=== PATIENT | female | born 1965 | race Caucasian/White ===

== ENCOUNTER 2020-05-03 07:32 | Inpatient (IN) ==
[2020-05-03] MEDS ORDERED: 0.9 % Sodium Chloride 1,000 ML IVC ONE (07:39)
[2020-05-03] MEDS ORDERED: Morphine Sulfate 2 MG/ML SYRINGE IVP ONE (07:39)
[2020-05-03] MEDS ORDERED: Ondansetron 4 MG/2 ML VIAL IVP ONE (07:39)
[2020-05-03 08:26] LABS: Basophils % 0.2 %; Hematocrit 39.7 % (35.3-44.9); Hemoglobin 13.3 g/dL (11.5-15.4); Immature Granulocytes % 0.4 % (0-4); Lymphocytes # 1.3 K/mcL (0.6-4.6); Mean Corpuscular HGB Conc 33.5 g/dL (31.6-35.5); Mean Corpuscular Hemoglobin 29.3 pg (28.0-33.3); Mean Corpuscular Volume 87.4 fL (83.0-100.0); Mean Platelet Volume 9.9 fL (9.4-12.4); Monocytes # 0.6 K/mcL (0.0-1.3); Monocytes % 6.2 %; Platelet Count 344 K/mcL (140-400); Red Blood Count 4.54 M/mcL (3.82-4.97); Red Cell Distribution Width 12.6 % (11.5-14.5); Segmented Neutrophils % 80.2 %
[2020-05-03 09:10] LABS: Alanine Aminotransferase 332 Units/L (7-52); Albumin 3.9 g/dL (3.5-5.7); Albumin/Globulin Ratio 1.3 (1.1-2.2); Alkaline Phosphatase 189 Units/L (34-104); Aspartate Amino Transferase 511 Units/L (13-39); BUN/Creatinine Ratio 14 (6-26); Bilirubin,Direct 1.2 mg/dL (0.0-0.2); Bilirubin,Indirect 0.6 mg/dL (0.0-1.0); Bilirubin,Total 1.8 mg/dL (0.3-1.0); Blood Urea Nitrogen 8 mg/dL (6-20); Calcium 8.5 mg/dL (8.6-10.3); Carbon Dioxide 14 mEq/L (23-29); Chloride 99 mEq/L (98-107); Glucose 204 mg/dL (70-105); Lipase 16 Units/L (11-82); Osmolality,Calculated 272 (280-300); Potassium 4.1 mEq/L (3.5-5.1); Sodium 129 mEq/L (136-145); Total Protein 6.9 g/dL (6.4-8.9); Troponin I < 0.03 ng/mL (< 0.04); eGFR For African Americans > 60 (> 60); eGFR For Non-African Americans > 60 (> 60)
[2020-05-03 09:45] LABS: Bacteria,Urine Few per hpf (None-Few); Bilirubin,Urine Negative (Negative); Blood,Urine Negative (Negative); Clarity,Urine Turbid (Clear); Color,Urine Yellow (Yellow); Glucose,Urine (UA) 70 mg/dL (Normal); Ketones,Urine 20 mg/dL (Negative); Leukocyte Esterase,Urine Negative (Negative); Mucus,Urine Few per lpf (None-Few); Nitrite,Urine Negative (Negative); PH,Urine 6.5 pH Units (5.0-8.0); Protein,Urine Negative (Neg-Trace); Specific Gravity,Urine 1.012 (1.010-1.025); Squamous Epithelial Cell,Urine Few per hpf (None-Few)
[2020-05-03] MEDS ORDERED: Ampicillin/Sulbactam 1,500 MG in 0.9 % Sodium Chloride Mini Bag 100 ML IVPB ONE (10:10)
[2020-05-03] MEDS ORDERED: Ondansetron 4 MG/2 ML VIAL IVP PRN ×2 (10:26→12:02)
[2020-05-03] MEDS ORDERED: Naloxone 0.4 MG/ML INJ IVP PRN (10:26)
[2020-05-03 10:52] LABS: Adenovirus Not Detected (Not Detect); Bordetella Pertussis Not Detected (Not Detect); Chlamydophila pneumoniae Not Detected (Not Detect); Coronavirus 229E Not Detected (Not Detect); Coronavirus HKU1 Not Detected (Not Detect); Coronavirus NL63 Not Detected (Not Detect); Coronavirus OC43 Not Detected (Not Detect); Human Metapneumovirus Not Detected (Not Detect); Human Rhinovirus/Enterovirus Not Detected (Not Detect); Influenza A Subtype 2009 H1 Not Detected (Not Detect); Influenza B Not Detected (Not Detect); Mycoplasma pneumoniae Not Detected (Not Detect); Parainfluenza Virus 1 Not Detected (Not Detect); Parainfluenza Virus 2 Not Detected (Not Detect); Parainfluenza Virus 3 Not Detected (Not Detect); Parainfluenza Virus 4 Not Detected (Not Detect); Respiratory Syncytial Virus Not Detected (Not Detect); SARS-CoV-2 Not Detected (Not Detect)
[2020-05-03] MEDS: 0.9 % Sodium Chloride 1,000 ML IVC SCH ×2 (11:17→16:39)
[2020-05-03] MEDS ORDERED: *HR* FentaNYL (PF) 100 MCG/2 ML VIAL ONE (11:48)
[2020-05-03] MEDS ORDERED: *HR* Propofol 200 MG/20 ML VIAL IVP ONE (11:48)
[2020-05-03] MEDS ORDERED: *HR* Midazolam HCl 2 MG/2 ML VIAL ONE (11:48)
[2020-05-03] MEDS ORDERED: Lidocaine -MPF 2% 2 ML VIAL ONE (11:52)
[2020-05-03] MEDS ORDERED: *HR* Succinylcholine 200 MG/10 ML VIAL IVP ONE (11:52)
[2020-05-03] MEDS ORDERED: Lidocaine -MPF 4% 5 ML AMPUL ONE (11:52)
[2020-05-03] MEDS ORDERED: Ondansetron 4 MG/2 ML VIAL ONE (11:52)
[2020-05-03] MEDS ORDERED: Promethazine Syrup 6.25 MG/5 ML PO PRN (12:02)
[2020-05-03] MEDS ORDERED: Dexamethasone 4 MG/ML VIAL ONE (12:40)
[2020-05-03] MEDS ORDERED: Indomethacin 50 MG SUPP.RECT RC ONE (12:41)
[2020-05-03 15:08] LABS: INR 1.1; Prothrombin Time 12.6 Seconds (9.4-12.1)
[2020-05-03] MEDS: Ampicillin/Sulbactam 1,500 MG in 0.9 % Sodium Chloride Mini Bag 100 ML IVPB SCH ×2 (15:19→21:12)
[2020-05-03] MEDS: *HR* Heparin 5,000 UNIT/ML VIAL SQ SCH (18:03)
[2020-05-04] MEDS: Ampicillin/Sulbactam 1,500 MG in 0.9 % Sodium Chloride Mini Bag 100 ML IVPB SCH ×5 (00:40→23:19)
[2020-05-04 02:21] LABS: Basophils % 0.2 %; Hematocrit 33.7 % (35.3-44.9); Hemoglobin 11.2 g/dL (11.5-15.4); Immature Granulocytes % 0.2 % (0-4); Lymphocytes # 1.3 K/mcL (0.6-4.6); Mean Corpuscular HGB Conc 33.2 g/dL (31.6-35.5); Mean Corpuscular Hemoglobin 30.1 pg (28.0-33.3); Mean Corpuscular Volume 90.6 fL (83.0-100.0); Mean Platelet Volume 9.9 fL (9.4-12.4); Monocytes # 0.7 K/mcL (0.0-1.3); Monocytes % 10.1 %; Neutrophils # 4.6 K/mcL (1.6-8.9); Platelet Count 280 K/mcL (140-400); Red Blood Count 3.72 M/mcL (3.82-4.97); Red Cell Distribution Width 12.9 % (11.5-14.5); Segmented Neutrophils % 69.5 %; White Blood Count 6.6 K/mcL (4.3-11.1)
[2020-05-04 02:50] LABS: Alanine Aminotransferase 457 Units/L (7-52); Albumin 3.4 g/dL (3.5-5.7); Albumin/Globulin Ratio 1.4 (1.1-2.2); Alkaline Phosphatase 172 Units/L (34-104); Aspartate Amino Transferase 390 Units/L (13-39); BUN/Creatinine Ratio 12 (6-26); Bilirubin,Indirect 0.6 mg/dL (0.0-1.0); Bilirubin,Total 2.6 mg/dL (0.3-1.0); Blood Urea Nitrogen 6 mg/dL (6-20); Calcium 8.1 mg/dL (8.6-10.3); Carbon Dioxide 23 mEq/L (23-29); Chloride 110 mEq/L (98-107); Globulin 2.4 g/dL (2.4-3.5); Glucose 130 mg/dL (70-105); Osmolality,Calculated 285 (280-300); Potassium 4.1 mEq/L (3.5-5.1); Sodium 138 mEq/L (136-145); Total Protein 5.8 g/dL (6.4-8.9); eGFR For African Americans > 60 (> 60); eGFR For Non-African Americans > 60 (> 60)
[2020-05-04] MEDS: *HR* Heparin 5,000 UNIT/ML VIAL SQ SCH ×2 (03:39→17:40)
[2020-05-04] MEDS ORDERED: *HR* FentaNYL (PF) 100 MCG/2 ML VIAL ONE ×2 (07:10→08:44)
[2020-05-04] MEDS ORDERED: *HR* Midazolam HCl 2 MG/2 ML VIAL ONE (07:10)
[2020-05-04] MEDS ORDERED: Lidocaine -MPF 4% 5 ML AMPUL ONE (07:12)
[2020-05-04] MEDS ORDERED: *HR* Rocuronium Bromide 50 MG/5 ML VIAL ONE (07:19)
[2020-05-04] MEDS ORDERED: Lidocaine -MPF 2% 2 ML VIAL ONE ×2 (07:19→07:59)
[2020-05-04] MEDS ORDERED: Ondansetron 4 MG/2 ML VIAL ONE (07:19)
[2020-05-04] MEDS ORDERED: Dexamethasone 4 MG/ML VIAL ONE (07:19)
[2020-05-04] MEDS ORDERED: *HR* Propofol 200 MG/20 ML VIAL IVP ONE (07:19)
[2020-05-04] MEDS ORDERED: Acetaminophen IV 1,000 MG/100 ML INFUS..BTL ONE (08:21)
[2020-05-04] MEDS ORDERED: Lacri-Lube 3.5 GM TUBE ONE (08:37)
[2020-05-04] MEDS ORDERED: Sugammadex Sodium 200 MG/2 ML VIAL IV ONE (08:51)
[2020-05-04] MEDS ORDERED: *HR* HYDROMORPHONE 2 MG/ML VIAL ONE (09:34)
[2020-05-04] MEDS: *HR* HYDROmorphone PF 0.5 MG/0.5 ML SYRINGE IVP PRN ×2 (10:15→10:22)
[2020-05-04] MEDS: *HR* Labetalol 20 MG/4 ML SYRINGE IVP PRN ×2 (10:29→10:36)
[2020-05-04] MEDS ORDERED: Ondansetron 4 MG/2 ML VIAL IVP PRN ×2 (12:08)
[2020-05-04] MEDS ORDERED: *HR* HYDROmorphone PF 0.5 MG/0.5 ML SYRINGE IVP PRN (12:08)
[2020-05-04] MEDS ORDERED: *HR* Labetalol 20 MG/4 ML SYRINGE IVP PRN (12:08)
[2020-05-04] MEDS ORDERED: 0.9 % Sodium Chloride 1,000 ML IVC SCH (12:08)
[2020-05-04] MEDS ORDERED: Naloxone 0.4 MG/ML INJ IVP PRN (12:08)
[2020-05-04] MEDS ORDERED: Promethazine Syrup 6.25 MG/5 ML PO PRN (12:08)
[2020-05-05 05:41] LABS: Hematocrit 31.4 % (35.3-44.9); Hemoglobin 10.1 g/dL (11.5-15.4); Mean Corpuscular HGB Conc 32.2 g/dL (31.6-35.5); Mean Corpuscular Hemoglobin 29.6 pg (28.0-33.3); Mean Corpuscular Volume 92.1 fL (83.0-100.0); Platelet Count 258 K/mcL (140-400); Red Blood Count 3.41 M/mcL (3.82-4.97); Red Cell Distribution Width 13.7 % (11.5-14.5); White Blood Count 6.2 K/mcL (4.3-11.1)
[2020-05-05] MEDS: *HR* Heparin 5,000 UNIT/ML VIAL SQ SCH ×2 (05:45→17:25)
[2020-05-05] MEDS: Ampicillin/Sulbactam 1,500 MG in 0.9 % Sodium Chloride Mini Bag 100 ML IVPB SCH (05:45)
[2020-05-05 06:03] LABS: Alanine Aminotransferase 471 Units/L (7-52); Albumin 3.1 g/dL (3.5-5.7); Albumin/Globulin Ratio 1.6 (1.1-2.2); Alkaline Phosphatase 178 Units/L (34-104); Aspartate Amino Transferase 254 Units/L (13-39); BUN/Creatinine Ratio 7 (6-26); Bilirubin,Direct 0.3 mg/dL (0.0-0.2); Bilirubin,Indirect 0.4 mg/dL (0.0-1.0); Bilirubin,Total 0.7 mg/dL (0.3-1.0); Blood Urea Nitrogen 4 mg/dL (6-20); Calcium 7.9 mg/dL (8.6-10.3); Carbon Dioxide 26 mEq/L (23-29); Chloride 109 mEq/L (98-107); Glucose 114 mg/dL (70-105); Magnesium 1.8 mg/dL (1.6-2.6); Osmolality,Calculated 286 (280-300); Potassium 3.6 mEq/L (3.5-5.1); Sodium 139 mEq/L (136-145); Total Protein 5.1 g/dL (6.4-8.9); eGFR For African Americans > 60 (> 60); eGFR For Non-African Americans > 60 (> 60)
[2020-05-05] MEDS: lisinopriL 5 MG TABLET PO SCH (09:25)
[2020-05-05] MEDS: metroNIDAZOLE 500 MG TABLET PO SCH ×3 (09:26→20:55)
[2020-05-06] MEDS: *HR* Heparin 5,000 UNIT/ML VIAL SQ SCH (05:16)
[2020-05-06 06:46] VITALS: BP 144/89
[2020-05-06 08:20] LABS: Basophils % 0.6 %; Eosinophils # 0.2 K/mcL (0.0-0.6); Eosinophils % 2.7 %; Hematocrit 33.6 % (35.3-44.9); Hemoglobin 10.9 g/dL (11.5-15.4); Immature Granulocytes % 0.3 % (0-4); Lymphocytes # 2.1 K/mcL (0.6-4.6); Mean Corpuscular HGB Conc 32.4 g/dL (31.6-35.5); Mean Corpuscular Hemoglobin 29.7 pg (28.0-33.3); Mean Corpuscular Volume 91.6 fL (83.0-100.0); Mean Platelet Volume 9.8 fL (9.4-12.4); Monocytes # 0.6 K/mcL (0.0-1.3); Monocytes % 8.8 %; Neutrophils # 3.5 K/mcL (1.6-8.9); Platelet Count 281 K/mcL (140-400); Red Blood Count 3.67 M/mcL (3.82-4.97); Red Cell Distribution Width 13.4 % (11.5-14.5); Segmented Neutrophils % 54.6 %; White Blood Count 6.4 K/mcL (4.3-11.1)
[2020-05-06 08:41] LABS: Alanine Aminotransferase 402 Units/L (7-52); Albumin 3.2 g/dL (3.5-5.7); Albumin/Globulin Ratio 1.5 (1.1-2.2); Alkaline Phosphatase 202 Units/L (34-104); Aspartate Amino Transferase 142 Units/L (13-39); BUN/Creatinine Ratio 9 (6-26); Bilirubin,Total 0.5 mg/dL (0.3-1.0); Blood Urea Nitrogen 5 mg/dL (6-20); Calcium 8.1 mg/dL (8.6-10.3); Carbon Dioxide 25 mEq/L (23-29); Chloride 106 mEq/L (98-107); Globulin 2.2 g/dL (2.4-3.5); Glucose 135 mg/dL (70-105); Osmolality,Calculated 285 (280-300); Potassium 3.6 mEq/L (3.5-5.1); Sodium 138 mEq/L (136-145); Total Protein 5.4 g/dL (6.4-8.9); eGFR For African Americans > 60 (> 60); eGFR For Non-African Americans > 60 (> 60)
[2020-05-06] MEDS: lisinopriL 5 MG TABLET PO SCH (09:30)
[2020-05-06] MEDS: metroNIDAZOLE 500 MG TABLET PO SCH (09:30)
== END 2020-05-06 13:09 | disposition home or self-care (01) | DRG 418 ==
LOC: EMEROOARM 07:32 → 3ANU 07:32 → SUATTDRO 11:28 → 3ANU 11:35
PROVIDERS: ADMIT Internal Medicine; ATTEND Family Medicine